=== PATIENT | female | born 1970 | race Two or more races ===

== ENCOUNTER 2016-08-08 14:50 | Emergency (ER) | payer OTHER ==
[2016-08-08] MEDS ORDERED: KETOROLAC TROMETHAMINE 60 MG/2 ML VIAL ONE (16:13)
[2016-08-08] MEDS ORDERED: METOCLOPRAMIDE HCL 5 MG/ML 2ML VIAL ONE (16:13)
[2016-08-08] MEDS ORDERED: ALBUTEROL/IPRATROPIUM 2.5/0.5 MG 3 ML/EACH DOSE ONE (16:21)
== END 2016-08-08 16:50 | disposition home or self-care (01) ==
LOC: ED 14:50
DX: J09.X2 Influenza due to identified novel influenza A virus with other respiratory manifestations (principal); J98.01 Acute bronchospasm; R51 Headache
CPT/HCPCS: 99282; 96372 ×2; 99283; J2765; J1885